=== PATIENT | male | born 1985 | race Two or more races ===

== ENCOUNTER 2024-06-10 15:14 | Inpatient (IN) | payer OTHER ==
[~2024-06-10] VITALS: Ht 172.7 cm; Wt 83.9 kg
--- NOTE | 2024-06-10 15:52 | NUR ---
SE REICBE PTE MASCULINO ALERTA Y ORIENTADO X3 REFIERE DIAREAS X3 DESDE HACE DOS ASHBY, DOLOR DE CUERPO Y FIEBRE. SE GABRIEL S/V Y SE UBICA.
[2024-06-10] MEDS ORDERED: FAMOtidine 10 MG/ML (4ML VIAL) IV ONE (16:15)
[2024-06-10] MEDS ORDERED: ONDANSETRON HCL 2 MG/ML VIAL IV ONE (16:15)
[2024-06-10] MEDS ORDERED: 0.9 % SODIUM CHLORIDE 1,000 ML IV ONE (16:15)
[2024-06-10 16:45] LABS: HEMATOCRIT 43.1 % (39.0-48.0); HEMOGLOBIN 14.7 g/dL (13-16.00); MEAN CELL VOLUME 89.3 fL (80.0-100.00); MEAN CORPUSCULAR HEMOGLOBIN 30.4 pg (27.00-32.0); MEAN CORPUSCULAR HGB CONC 34.1 g/dl (32.0-36.0); RED BLOOD COUNT 4.82 M/uL (4.00-6.00)
[2024-06-10 16:53] LABS: PLATELET COUNT 83 K/uL (150-450)
[2024-06-10 17:21] LABS: PH,URINE 5.5 (5.0-8.0); URINE APPEARANCE Clear; URINE BILIRRUBIN Negative (NEGATIVE); URINE BLOOD Moderate; URINE COLOR Dark Yellow; URINE GLUCOSE Negative (NEGATIVE); URINE KETONE Trace (NEGATIVE); URINE LEUKOCYTE Negative; URINE NITRATE Negative; URINE PROTEIN 30 (NEGATIVE); URINE UROBILINOGEN 0.2 E.U./dl
[2024-06-10 17:22] LABS: URINE BACTERIA 16.3 uL (0.0-1933); URINE EPITHELIAL CELLS 10.8 uL (0.0-38.8); URINE RBC 31.4 uL (0.0-20.8); URINE WBC 5.5 uL (0.0-23.2)
[2024-06-10 17:32] LABS: ALBUMIN 3.9 gm/dL (3.4-5.0); BILIRUBIN TOTAL 0.34 mg/dL (0.3-1.2); CALCIUM 8.2 mg/dL (8.5-10.1); CREATININE SERUM 1.12 mg/dL (0.70-1.30); GFR 72.99; GLOBULINA 3.1 G/DL (2.4-3.5); POTASSIUM 4.05 mEq/L (3.5-5.1)
[2024-06-10 17:38] LABS: URINE CAST 1.06 uL (0.0-1.40)
[2024-06-10 20:50] LABS: HEMATOCRIT 40.4 % (39.0-48.0); HEMOGLOBIN 13.5 g/dL (13-16.00); MEAN CELL VOLUME 89.3 fL (80.0-100.00); MEAN CORPUSCULAR HGB CONC 33.6 g/dl (32.0-36.0); RED BLOOD COUNT 4.52 M/uL (4.00-6.00)
[2024-06-10 20:53] LABS: PLATELET COUNT 69 K/uL (150-450)
[2024-06-10] MEDS ORDERED: 0.9 % SODIUM CHLORIDE 1,000 ML IV SCH (22:00)
[2024-06-10] MEDS ORDERED: ACETAMINOPHEN 500 MG GEL..CAP PO PRN (22:15)
[2024-06-11 01:18] LABS: INR 1.11; PARTIAL THROMBOPLASTIN TIME 34.8 SECONDS (22.0-34.0)
[2024-06-11 04:09] VITALS: BP 109/70; O2SAT 95
[2024-06-11 05:47] LABS: HEMATOCRIT 40.7 % (39.0-48.0); HEMOGLOBIN 13.8 g/dL (13-16.00); MEAN CELL VOLUME 88.9 fL (80.0-100.00); MEAN CORPUSCULAR HEMOGLOBIN 30.2 pg (27.00-32.0); RED BLOOD COUNT 4.58 M/uL (4.00-6.00); RED CELL DISTRIBUTION WIDTH 13.2 % (11.5-14.5)
[2024-06-11 05:51] LABS: PLATELET COUNT 59 K/uL (150-450)
[2024-06-11 08:36] VITALS: BP 114/70; O2SAT 95
[2024-06-11] MEDS ORDERED: PANTOPRAZOLE SODIUM 40 MG/VIAL VIAL IV SCH (09:00)
[2024-06-11] MEDS ORDERED: CEFTRIAXONE SODIUM 2,000 MG VIAL IV SCH (09:00)
[2024-06-11 16:04] VITALS: BP 117/76; O2SAT 97
[2024-06-12 01:00] VITALS: BP 121/66; O2SAT 97
[2024-06-12 07:58] LABS: HEMATOCRIT 42.2 % (39.0-48.0); HEMOGLOBIN 14.6 g/dL (13-16.00); MEAN CELL VOLUME 87.5 fL (80.0-100.00); MEAN CORPUSCULAR HEMOGLOBIN 30.4 pg (27.00-32.0); MEAN CORPUSCULAR HGB CONC 34.7 g/dl (32.0-36.0); RED BLOOD COUNT 4.82 M/uL (4.00-6.00)
[2024-06-12 08:00] VITALS: BP 114/72; O2SAT 96
[2024-06-12 08:17] LABS: ALBUMIN 3.5 gm/dL (3.4-5.0); BILIRUBIN TOTAL 0.32 mg/dL (0.3-1.2); CREATININE SERUM 0.77 mg/dL (0.70-1.30); GFR 112.47; GLOBULINA 2.5 G/DL (2.4-3.5); MAGNESIUM 1.8 mg/dL (1.8-2.4); PHOSPHOROUS 3.1 mg/dL (2.5-4.9); POTASSIUM 4.04 mEq/L (3.5-5.1)
[2024-06-12 08:20] LABS: PLATELET COUNT 42 K/uL (150-450)
[2024-06-12 09:52] LABS: HEMATOCRIT 42.6 % (39.0-48.0); HEMOGLOBIN 14.9 g/dL (13-16.00); MEAN CELL VOLUME 87.2 fL (80.0-100.00); MEAN CORPUSCULAR HEMOGLOBIN 30.6 pg (27.00-32.0); MEAN CORPUSCULAR HGB CONC 35.1 g/dl (32.0-36.0); RED BLOOD COUNT 4.88 M/uL (4.00-6.00); RED CELL DISTRIBUTION WIDTH 13.2 % (11.5-14.5)
[2024-06-12 12:17] LABS: PLATELET COUNT 42 K/uL (150-450)
[2024-06-12 14:39] LABS: MANUAL PLATELET COUNT 40
[2024-06-12 16:43] VITALS: BP 113/70; O2SAT 95
[2024-06-13 00:03] VITALS: BP 117/66; O2SAT 100
[2024-06-13 08:07] LABS: HEMATOCRIT 41.8 % (39.0-48.0); HEMOGLOBIN 14.6 g/dL (13-16.00); MEAN CELL VOLUME 87.8 fL (80.0-100.00); MEAN CORPUSCULAR HEMOGLOBIN 30.7 pg (27.00-32.0); RED BLOOD COUNT 4.76 M/uL (4.00-6.00); RED CELL DISTRIBUTION WIDTH 12.8 % (11.5-14.5)
[2024-06-13 08:13] LABS: PLATELET COUNT 32 K/uL (150-450)
[2024-06-13 08:41] VITALS: BP 97/60; O2SAT 95
[2024-06-13 17:00] VITALS: BP 119/75; O2SAT 98
[2024-06-14 00:30] VITALS: BP 127/70; O2SAT 99
[2024-06-14 08:00] VITALS: BP 121/75; O2SAT 97
[2024-06-14 14:49] LABS: PLT IN CITRATE 40 K/uL (150-450)
[2024-06-14 14:51] LABS: HEMATOCRIT 45.1 % (39.0-48.0); HEMOGLOBIN 15.4 g/dL (13-16.00); MEAN CELL VOLUME 88.4 fL (80.0-100.00); MEAN CORPUSCULAR HEMOGLOBIN 30.1 pg (27.00-32.0); MEAN CORPUSCULAR HGB CONC 34.1 g/dl (32.0-36.0); RED BLOOD COUNT 5.11 M/uL (4.00-6.00)
[2024-06-14 16:00] VITALS: BP 129/80; O2SAT 96
[2024-06-14 16:41] LABS: PLATELET COUNT 43 K/uL (150-450)
[2024-06-14 18:39] LABS: MANUAL PLATELET COUNT 60
[2024-06-14 22:11] VITALS: BP 122/67
[2024-06-15 02:57] VITALS: BP 111/72; O2SAT 98
[2024-06-15 08:22] VITALS: BP 142/78; O2SAT 96
[2024-06-15 11:40] LABS: HEMOGLOBIN 15.6 g/dL (13-16.00); MEAN CELL VOLUME 88.8 fL (80.0-100.00); MEAN CORPUSCULAR HEMOGLOBIN 30.2 pg (27.00-32.0); RED BLOOD COUNT 5.18 M/uL (4.00-6.00); RED CELL DISTRIBUTION WIDTH 12.8 % (11.5-14.5)
[2024-06-15 12:33] LABS: PLATELET COUNT 51 K/uL (150-450)
[2024-06-15 19:35] VITALS: BP 136/80
[2024-06-16 02:04] VITALS: BP 109/68; O2SAT 96
[2024-06-16 06:46] LABS: HEMATOCRIT 42.2 % (39.0-48.0); HEMOGLOBIN 14.6 g/dL (13-16.00); MEAN CELL VOLUME 87.3 fL (80.0-100.00); MEAN CORPUSCULAR HEMOGLOBIN 30.3 pg (27.00-32.0); MEAN CORPUSCULAR HGB CONC 34.7 g/dl (32.0-36.0); RED BLOOD COUNT 4.83 M/uL (4.00-6.00); RED CELL DISTRIBUTION WIDTH 12.9 % (11.5-14.5)
[2024-06-16 06:51] LABS: PLATELET COUNT 66 K/uL (150-450)
[2024-06-16 07:02] LABS: PLT IN CITRATE 28 K/uL (150-450)
[2024-06-16 08:00] LABS: MANUAL PLATELET COUNT 120
[2024-06-16 09:21] VITALS: BP 123/85; BP 138/74; O2SAT 96; O2SAT 97
== END 2024-06-16 11:34 | disposition home or self-care (01) | DRG 866 ==
LOC: ER 15:16 → SURG 22:05 → MEDJ 06-14 18:49
PROVIDERS: General Practice; Internal Medicine Infectious Disease; ADMIT Internal Medicine; ATTEND Internal Medicine
PROC: 30233R1 Transfusion of Nonautologous Platelets into Peripheral Vein, Percutaneous Approach (ICD-10-PCS; principal; 2024-06-14)
DX: A90 Dengue fever [classical dengue] (principal); D69.6 Thrombocytopenia, unspecified; E86.0 Dehydration